=== PATIENT | male | born 1985 | race Caucasian/White ===

== ENCOUNTER 2023-08-16 16:47 | Emergency (ER) | payer MEDICAID, SELFPAY ==
[2023-08-16 17:00] VITALS: BP 111/69; BP 134/86; PULSE 86; PULSE 91; RESP 16; TEMP 36.6; O2SAT 100; O2SAT 99; BMI 20.1
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
[2023-08-16 17:45] LABS: Appearance Urine Turbid; Color Urine Yellow; Glucose Urine UA Negative (Negative); Leukocyte Esterase Urine Large (3+) (Negative); Nitrite Urine Positive (Negative); PH 7.5 (5.0-9.0); UMIC TRIGGER UACC YES; Urine Blood Large (3+) (Negative); Urine Ketones Negative (Negative); Urine Protein 30 (1+) mg/dL (Neg-Trace)
[2023-08-16 17:51] VITALS: BP 113/80; PULSE 96; RESP 16; TEMP 36.6; O2SAT 100
[2023-08-16] MEDS: oxyCODONE HCl Immed Release 5 MG TABLET PO (17:53)
[2023-08-16 18:32] LABS: Squamous Epithelial Cell Urine 0-2 /HPF (0-2); UACC Culture Trigger YES; WBC Urine 21-50 /HPF (0-5)
[2023-08-16 18:33] LABS: Bacteria Urine 3+ (None Seen); Hyaline Casts Urine 0-2 /LPF (0-2)
[2023-08-16] MEDS: cefuroxime axetiL 500 MG TABLET PO (19:16)
--- NOTE | 2023-08-16 19:23 | PC.NURSE ---
pt medicated per mar, ems at bedside, report given to ems by Susana MASCORRO.
== END 2023-08-16 19:23 ==
PROVIDERS: Emergency Provider Internal Medicine; PCP Hospitalist
DX: T83.090A Other mechanical complication of cystostomy catheter, initial encounter (principal); Y83.3 Surgical operation with formation of external stoma as the cause of abnormal reaction of the patient, or of later complication, without mention of misadventure at the time of the procedure; Y92.9 Unspecified place or not applicable; N39.0 Urinary tract infection, site not specified
CPT/HCPCS: 51705; 81001; 87086; 99283; 99285

== ENCOUNTER 2023-08-23 13:04 | Outpatient (AMB) | payer MEDICAID, SELFPAY ==
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
[2023-08-23 16:12] VITALS: BMI 19.9
== END 2023-08-23 14:44 | disposition home or self-care (01) ==
PROVIDERS: PCP Hospitalist; Visit Provider Physician Assistant
DX: S82.142A Displaced bicondylar fracture of left tibia, initial encounter for closed fracture (principal); M77.8 Other enthesopathies, not elsewhere classified
CPT/HCPCS: 99203

== ENCOUNTER 2023-08-23 13:24 | Outpatient (REF) | payer MEDICAID, SELFPAY ==
--- NOTE | ~2023-08-23 | XR_ITS ---
EXAMINATION: XR SHOULDER, LEFT CLINICAL INFORMATION: Pain. COMPARISON: Radiograph left shoulder 07/22/2023. TECHNIQUE: Three views of the left shoulder. FINDINGS: No fracture or subluxation. Joint spaces are maintained. No significant soft tissue abnormality. Partially imaged thoracic spinal hardware. XR/XR shoulder LT min 2V IMPRESSION: No significant radiographic abnormality of the left shoulder.
--- NOTE | ~2023-08-23 | XR_ITS ---
EXAMINATION: XR KNEE, LEFT CLINICAL INFORMATION: Pain in the left knee. COMPARISON: None available. TECHNIQUE: Two views of the left knee. FINDINGS: Comminuted tibial plateau fracture with intra-articular extension. Small size joint effusion. Prominent calcific/ossific bodies adjacent to the medial femoral condyle. Diffuse soft tissue swelling. XR/XR knee LT 2V IMPRESSION: 1. Comminuted tibial plateau fracture with intra-articular extension. 2. Prominent calcific/ossific bodies adjacent to the medial femoral condyle. The report will be called to the ordering clinician by a [place] [facility] Physician Tester Electronic Scale.
--- NOTE | ~2023-08-23 | XR_ITS ---
EXAMINATION: XR ANKLE, RIGHT CLINICAL INFORMATION: Pain. COMPARISON: None available. TECHNIQUE: AP, lateral, and mortise views of the right ankle. FINDINGS: Nonspecific heterogeneity of the bone marrow. No fractures or subluxation. Minimal soft tissue swelling. No abnormal soft tissue calcifications. No unexpected radiopaque foreign bodies. XR/XR ankle RT min 3V IMPRESSION: 1. No acute fractures or malalignment. 2. Nonspecific heterogeneity of the bone marrow, further evaluation with an MRI of the right ankle with and without IV contrast as clinically indicated.
== END 2023-08-23 13:25 | disposition home or self-care (01) ==
LOC: HO.XRAY 13:24
PROVIDERS: Visit Provider Physician Assistant
DX: M25.571 Pain in right ankle and joints of right foot (principal); M25.512 Pain in left shoulder; M25.562 Pain in left knee
CPT/HCPCS: 73030; 73560; 73610

== ENCOUNTER 2023-08-23 17:16 | Outpatient (REF) | payer MEDICAID, SELFPAY | END 2023-08-23 17:17 | disposition home or self-care (01) | LOC: HO.HOSX 17:16 | PROVIDERS: Visit Provider Physician Assistant | DX: S82.142A Displaced bicondylar fracture of left tibia, initial encounter for closed fracture (principal); M77.8 Other enthesopathies, not elsewhere classified | CPT/HCPCS: 99202 ==

== ENCOUNTER 2023-09-15 10:47 | Emergency (ER) | payer MEDICAID, SELFPAY ==
[2023-09-15 11:09] VITALS: BP 124/68; BP 130/75; PULSE 80; PULSE 85; RESP 16; TEMP 36.7; O2SAT 100; O2SAT 98; BMI 22.1
--- NOTE | 2023-09-15 12:04 | PC.NURSE ---
[facility] from [facility] d/t clogged suprapubic catheter. unable to irrigate at facility. no urine noted in catheter bag. bladder scan displays >645ml. pt states pain at penis. denies urinary sx/abd pain/n/v/d/fever/chills. abd nontender upon palpation. pt states he came in x 3 weeks ago for the same issue. pt waiting to be seen by ED provider. no sob/wob noted. respirations even and unlabored. plan of care ongoing. call salcedo placed within reach.
--- NOTE | 2023-09-15 13:00 | PC.NURSE ---
new 18Fr suprapubic catheter placed by Dr. Stanley. pt tolerated insertion well. pt verbalizing immediate abdominal discomfort post catheter insertion. pt still verbalizing 7/10 pain at his penis. requesting medication. provider aware. pt resting comfortably in no apparent distress. mother bedside for support. plan of care ongoing. call salcedo placed within reach.
--- NOTE | 2023-09-15 13:10 | ED.MALEGU ---
HPI - Male Genitourinary General Chief complaint: Urogenital-Male Stated complaint: CLOGGED SUPERPUBIC CATH, FROM SNF PER EMS Time Seen by Provider: 09/15/23 12:18 Source: patient Mode of arrival: EMS History of Present Illness HPI Narrative: 38-year-old male brought in [facility] for clogged suprapubic catheter, he denies any fever, chills, nausea or vomiting. Related Data Home Medications ?Medication ?Instructions ?Recorded ?Confirmed dextroamphetamine-amphetamine 5 mg 5 mg PO DAILY 08/23/23 08/24/23 tablet (Adderall) gabapentin 100 mg capsule 100 mg PO QDAY 08/23/23 08/24/23 sertraline 25 mg tablet 75 mg PO DAILY 08/23/23 08/24/23 Previous Rx's ?Medication ?Instructions ?Recorded cefuroxime axetil 250 mg tablet 250 mg PO BID 10 days #20 tabs 08/16/23 Allergies Allergy/AdvReac Type Severity Reaction Status Date / Time No Known Allergies Allergy Verified 09/15/23 11:12 Review of Systems Review of Systems: Pertinent positives and negatives as stated in HPI [facility] Past Medical History Source: nursing notes reviewed Medical History ADHD Depression Anxiety Surgical History H/O splenectomy Hx of spinal fusion History of bladder surgery History of surgery on lower extremity Social History Social History Patient Tobacco Use Status: Former Tobacco user Smoked in Last 30 Days: No Use of substances other than those prescribed or required for medical reasons: No Advance Directives: No Advance Directives Information Provided: No Current occupational status: unemployed and disabled Physical Exam Vital Signs: Vital Signs: Last Vital Signs Temp 98.0 F 09/15/23 11:09 Pulse 85 09/15/23 11:09 Resp 16 09/15/23 11:09 BP 130/75 09/15/23 11:09 Pulse Ox 100 09/15/23 11:09 O2 Del Method Room Air 09/15/23 11:09 BMI result Body Mass Index 22.1 VITAL SIGNS: Reviewed. GENERAL: Well developed, well nourished, in no acute distress. HEAD: Normocephalic/atraumatic EYES: PERRLA, EOMI LUNGS: Normal breath sounds. No adventitious sounds or accessory muscle use. SpO2<100> CARDIOVASCULAR: Regular rate and rhythm without noted murmurs ABDOMEN: Soft, non-tender, non-distended with bowel sounds. : Suprapubic catheter, without surrounding erythema/edema, significant amount of sediment noted within the tube itself without urine noted in the collection bag. MUSCULOSKELETAL: No tenderness, deformities, or effusions noted on gross inspection. EXTREMITIES: No cyanosis, clubbing or edema. SKIN: Inspection of the skin reveals no rashes NEUROLOGIC: Alert and oriented x 4. Strength and sensation to light touch were grossly intact x 4. Medical Decision Making Medical Decision Making MDM Narrative: 38-year-old male with history and clinical presentation consistent with blockage of superior pubic catheter with sediment, the catheter was upsized to 18 [place]an with a 10 mL balloon, no evidence to suggest underlying infection either clinically/historically or noting any foul odor on exchange. Bladder scan also noted that patient was in urinary retention secondary to the blockage of the suprapubic catheter. Patient received combination analgesics, the catheter is patent and he is otherwise discharged. Differential Diagnosis Differential Diagnoses: The differential diagnosis associated with the presentation includes Please see the discussion above Admission/Observation Consideration of admission/observation: Escalation of care including admission/observation considered Please see the discussion above Procedures Catheter Insertion (Urinary) Date of insertion: 09/15/23 Time of insertion: 13:14 Reason for placing: No Reason for placing indwelling catheter: Acute urinary retention Bladder scan/ultrasound used before catheterization: Yes Estimated amount of urine (mLs): 631 Antiseptic solution prep: Povidone-Iodine Topical anesthesia used: No Catheter type/location: Suprapubic Size (Belizean): 18 Catheter balloon size (mL): 10 Catheter balloon amount: 10 Results: successfully catheterized-immediate flow and retried with different size/type catheter Procedure performed: without complications Discharge Plan Discharge Clinical Impression: Complication, blocked suprapubic catheter, Acute urinary retention Patient Disposition: Xfer Other Instructions: How to Care for Your Suprapubic Catheter (DC) Additional Instructions: 1. Best maintenance of suprapubic catheter with a lot of sediment I recommend daily irrigation with scheduled catheter changes. 2. I also recommend follow-up with Urology. Please return to the ER for any worsening symptoms. Prescriptions: No Action cefuroxime axetil 250 mg tablet 250 mg PO BID 10 Days Qty: 20 0RF sertraline 25 mg tablet 75 mg PO DAILY gabapentin 100 mg capsule 100 mg PO QDAY dextroamphetamine-amphetamine [Adderall] 5 mg tablet 5 mg PO DAILY Print Language: Armenian
[2023-09-15] MEDS: Ibuprofen 400 MG TABLET PO (13:17)
[2023-09-15] MEDS: Acetaminophen 325 MG TABLET 975 MG PO (13:18)
--- NOTE | 2023-09-15 13:19 | PC.NURSE ---
pt rating pain at a 7/10 at this time. medication administered per provider order. effectiveness pending.
--- NOTE | 2023-09-15 15:10 | PC.NURSE ---
pt requesting scheduled medication that he usually takes [facility] at this time. dr. reed notified/aware. per dr. reed verbal order - medication from pt's med list was ordered at this time by this RN. will administer once verified by pharmacy.
[2023-09-15] MEDS: Gabapentin 100 MG CAPSULE PO (15:16)
[2023-09-15] MEDS: Lactulose 20 GM/30 ML SOLUTION 10 GM PO (15:16)
[2023-09-15] MEDS: Baclofen 10 MG TABLET PO (15:16)
--- NOTE | 2023-09-15 16:17 | PC.NURSE ---
pt continues to wait for transportation back to [facility] via EMS. resting comfortably in hallway in no apparent distress. mother bedside for support. respirations remain even and unlabored.
[2023-09-15 17:02] VITALS: BP 110/75; PULSE 86; RESP 14; TEMP 37.1; O2SAT 97
== END 2023-09-15 18:45 ==
PROVIDERS: Emergency Provider Student in an Organized Health Care Education/Training Program
DX: R33.9 Retention of urine, unspecified (principal); T83.098A Other mechanical complication of other urinary catheter, initial encounter; Y73.8 Miscellaneous gastroenterology and urology devices associated with adverse incidents, not elsewhere classified; Y92.9 Unspecified place or not applicable
CPT/HCPCS: 51702; 99284

== ENCOUNTER 2023-10-11 13:57 | Outpatient (AMB) | payer MEDICAID, SELFPAY ==
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
== END 2023-10-11 15:22 | disposition home or self-care (01) ==
PROVIDERS: Visit Provider Nurse Practitioner Family
DX: N31.9 Neuromuscular dysfunction of bladder, unspecified (principal)
CPT/HCPCS: 99204

== ENCOUNTER → 2023-10-11 13:57 | Outpatient (BNVA) | payer MEDICAID, SELFPAY | PROVIDERS: Visit Provider Nurse Practitioner Family | DX: N31.9 Neuromuscular dysfunction of bladder, unspecified (principal); Z96.0 Presence of urogenital implants; Z43.5 Encounter for attention to cystostomy | CPT/HCPCS: 99202 ==

== ENCOUNTER 2023-10-18 10:33 | Outpatient (AMB) | payer MEDICAID, SELFPAY ==
[2023-10-18 10:35] VITALS: BP 130/72; PULSE 105
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
== END 2023-10-18 11:14 | disposition home or self-care (01) ==
LOC: HO.HGI 10:33
PROVIDERS: PCP Hospitalist; Visit Provider Nurse Practitioner Family
DX: K59.04 Chronic idiopathic constipation (principal); R11.0 Nausea; G82.20 Paraplegia, unspecified
CPT/HCPCS: 99203

== ENCOUNTER → 2023-10-18 10:33 | Outpatient (BNVA) | payer MEDICAID, SELFPAY | PROVIDERS: PCP Hospitalist; Visit Provider Nurse Practitioner Family | DX: K59.04 Chronic idiopathic constipation (principal); R11.0 Nausea; G82.20 Paraplegia, unspecified | CPT/HCPCS: 99202 ==

== ENCOUNTER 2023-11-19 15:11 | Emergency (ER) | payer MEDICAID, SELFPAY ==
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
[2023-11-19 15:37] VITALS: BP 120/80; BP 129/79; PULSE 107; PULSE 92; RESP 18; TEMP 37; O2SAT 97; BMI 25.5
[2023-11-19 15:46] VITALS: BP 129/79; PULSE 92; RESP 18; TEMP 37; O2SAT 97
[2023-11-19 16:00] VITALS: BP 117/76; PULSE 90; RESP 18; TEMP 36.7; O2SAT 97
--- NOTE | 2023-11-19 16:23 | PC.NURSE ---
patient bladder scanned by this RN, patient noted to have over 400mL of urine in bladder. irrigation tray used and roughly 500cc of yellow urine drained manually from bladder. MD at bedside to replace suprapubic, 18FR suprapubic catheter placed delgado bag attached, UA sent. patient resting comfortably at this time
[2023-11-19 16:24] LABS: Appearance Urine Cloudy; Color Urine Yellow; Glucose Urine UA Negative (Negative); Leukocyte Esterase Urine Large (3+) (Negative); Nitrite Urine Positive (Negative); Specific Gravity - Urine 1.015 (1.005-1.025); UMIC TRIGGER UACC YES; Urine Blood Small (1+) (Negative); Urine Ketones Negative (Negative); Urine Protein 30 (1+) mg/dL (Neg-Trace)
[2023-11-19 16:28] LABS: Bacteria Urine 4+ (None Seen); Hyaline Casts Urine 0-2 /LPF (0-2); RBC Urine >20 /HPF (0-2); Squamous Epithelial Cell Urine 0-2 /HPF (0-2); UACC Culture Trigger YES; WBC Urine >50 /HPF (0-5)
[2023-11-19] MEDS: Acetaminophen 325 MG TABLET 650 MG PO (18:26)
== END 2023-11-19 18:32 | disposition skilled nursing facility (03) ==
PROVIDERS: Internal Medicine; Emergency Provider Emergency Medicine
DX: G82.20 Paraplegia, unspecified (principal); T83.9XXA Unspecified complication of genitourinary prosthetic device, implant and graft, initial encounter; Y73.8 Miscellaneous gastroenterology and urology devices associated with adverse incidents, not elsewhere classified; Y92.9 Unspecified place or not applicable; Z79.899 Other long term (current) drug therapy
CPT/HCPCS: 81001; 87086; 99284

== ENCOUNTER 2023-11-29 14:18 | Outpatient (AMB) | payer MEDICAID, SELFPAY ==
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
[2023-11-29 14:33] VITALS: BP 126/94; PULSE 102; O2SAT 97; BMI 23.5
== END 2023-11-29 15:21 | disposition home or self-care (01) ==
PROVIDERS: PCP Hospitalist; Visit Provider Nurse Practitioner Family
DX: K59.04 Chronic idiopathic constipation (principal); R11.0 Nausea; G82.20 Paraplegia, unspecified; K59.1 Functional diarrhea
CPT/HCPCS: 99213

== ENCOUNTER → 2023-11-29 14:18 | Outpatient (BNVA) | payer MEDICAID, SELFPAY | PROVIDERS: PCP Hospitalist; Visit Provider Nurse Practitioner Family | DX: K59.04 Chronic idiopathic constipation (principal); R11.0 Nausea; K59.1 Functional diarrhea; G82.20 Paraplegia, unspecified | CPT/HCPCS: 99212 ==

== ENCOUNTER 2023-12-23 15:11 | Outpatient (REF) | payer MEDICAID, SELFPAY ==
--- NOTE | ~2023-12-23 | XR_ITS ---
EXAMINATION: XR KNEE, LEFT CLINICAL INFORMATION: Pain. COMPARISON: Prior radiographs dated 08/23/2023. TECHNIQUE: AP and lateral views of the left knee. FINDINGS: A healing comminuted tibial plateau fracture is redemonstrated, with intra-articular extension. The fracture line is less apparent than was seen previously, with callus formation. There is diffuse soft tissue calcification adjacent to the medial femoral condyle, consistent with a Leisa-Stieda lesion. This suggests a prior MCL injury. Small loose bodies are questioned. XR/XR knee LT 2V IMPRESSION: 1. A healing fracture with intra-articular extension is again noted of the tibial plateau. Faint residual fracture lines are noted. 2. A Leisa-Stieda lesion is seen suggesting a prior MCL injury. 3. Small loose bodies are suspected within the joint space.
== END 2023-12-23 15:12 | disposition home or self-care (01) ==
LOC: HO.HOSX 15:11
PROVIDERS: PCP Hospitalist; Visit Provider Physician Assistant
DX: S82.142A Displaced bicondylar fracture of left tibia, initial encounter for closed fracture (principal); M77.8 Other enthesopathies, not elsewhere classified
CPT/HCPCS: 73560; 99212

== ENCOUNTER 2023-12-23 15:11 | Outpatient (AMB) | payer MEDICAID, SELFPAY ==
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
== END 2023-12-23 16:00 ==
PROVIDERS: PCP Hospitalist; Visit Provider Physician Assistant
DX: S82.142A Displaced bicondylar fracture of left tibia, initial encounter for closed fracture (principal); M77.8 Other enthesopathies, not elsewhere classified
CPT/HCPCS: 99213

== ENCOUNTER 2023-12-30 11:39 | Outpatient (REF) | payer MEDICAID, SELFPAY ==
--- NOTE | ~2023-12-30 | US_ITS ---
EXAMINATION: US RETROPERITONEAL COMPLETE (RENAL) CLINICAL INFORMATION: Neurogenic bladder. COMPARISON: None available. TECHNIQUE: Real-time imaging of the kidneys and bladder. FINDINGS: RIGHT KIDNEY: 10.8 x 4.9 x 4.4 cm (SAG x AP x TRV). The kidney is normal in size, contour, and echogenicity. Renal cortical thickness is normal. No calculi or focal parenchymal lesions. No hydronephrosis. LEFT KIDNEY: 11.9 x 5.3 x 4.8 cm (SAG x AP x TRV). The kidney is normal in size, contour, and echogenicity. Renal cortical thickness is normal. No calculi or focal parenchymal lesions. No hydronephrosis. BLADDER: Well distended and normal. Bilateral ureteral jets are demonstrated. Prevoid bladder volume is 381.9 mL. Postvoid bladder volume is 341.0 mL. Suprapubic tube seen within the bladder. ADDITIONAL FINDINGS: There are limited views of the prostate. US/US retroperitoneal comp IMPRESSION: 1. Normal appearance of the kidneys. 2. Large post void residual.
== END 2023-12-30 11:40 | disposition home or self-care (01) ==
LOC: HO.US 11:39
PROVIDERS: PCP Hospitalist; Visit Provider Nurse Practitioner Family
DX: N31.9 Neuromuscular dysfunction of bladder, unspecified (principal)
CPT/HCPCS: 76770

== ENCOUNTER 2024-01-11 10:28 | Outpatient (AMB) | payer MEDICAID, SELFPAY ==
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
== END 2024-01-11 11:23 | disposition home or self-care (01) ==
PROVIDERS: Visit Provider Nurse Practitioner Family
DX: N31.9 Neuromuscular dysfunction of bladder, unspecified (principal)
CPT/HCPCS: 51705; 99214; G2211

== ENCOUNTER → 2024-01-11 10:28 | Outpatient (BNVA) | payer MEDICAID, SELFPAY | PROVIDERS: Visit Provider Nurse Practitioner Family | DX: N31.9 Neuromuscular dysfunction of bladder, unspecified (principal) | CPT/HCPCS: 51705; 99212 ==

== ENCOUNTER 2024-01-14 12:46 | Emergency (ER) | payer MEDICAID, SELFPAY ==
[2024-01-14 13:04] VITALS: BP 134/90; BP 134/93; PULSE 109; PULSE 92; RESP 18; TEMP 36.5; O2SAT 96; O2SAT 98; BMI 26.6
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
[2024-01-14] MEDS: Baclofen 10 MG TABLET PO (13:55)
[2024-01-14 14:50] LABS: Anion Gap 11 (12-20); Blood Urea Nitrogen 14 mg/dL (9-16); Calcium 9.9 mg/dL (8.4-10.2); Carbon Dioxide 30 mmol/L (22-29); Chloride 105 mmol/L (96-108); Estimated Glomerular Filt Rate > 60; Glucose Random 85 mg/dL (60-115); Sodium 142 mmol/L (135-145)
[2024-01-14 15:20] VITALS: BP 121/89; PULSE 97; RESP 18; TEMP 36.9; O2SAT 97
[2024-01-14 15:32] LABS: Appearance Urine Cloudy; Color Urine Yellow; Glucose Urine UA Negative (Negative); Leukocyte Esterase Urine Large (3+) (Negative); Nitrite Urine Negative (Negative); Specific Gravity - Urine 1.015 (1.005-1.025); UMIC TRIGGER UACC YES; Urine Blood Trace (Negative); Urine Ketones Negative (Negative); Urine Protein Trace mg/dL (Neg-Trace)
[2024-01-14 15:35] LABS: Bacteria Urine 2+ (None Seen); Hyaline Casts Urine 0-2 /LPF (0-2); UACC Culture Trigger YES; WBC Urine >50 /HPF (0-5)
[2024-01-14 18:54] VITALS: BP 131/80; PULSE 109; RESP 16; TEMP 36.6
--- NOTE | 2024-01-14 19:32 | MHC.EDTECH ---
Patient given dinner tray
[2024-01-14 19:59] VITALS: BP 131/80; PULSE 109; RESP 16; TEMP 36.6; O2SAT 97
== END 2024-01-14 20:01 | disposition home or self-care (01) ==
PROVIDERS: Emergency Provider Student in an Organized Health Care Education/Training Program; PCP Hospitalist
DX: T83.098A Other mechanical complication of other urinary catheter, initial encounter (principal); Y73.8 Miscellaneous gastroenterology and urology devices associated with adverse incidents, not elsewhere classified; Y92.129 Unspecified place in nursing home as the place of occurrence of the external cause
CPT/HCPCS: 36415; 80048; 81001; 87086; 87088; 87186; 99283; 99284

== ENCOUNTER 2024-01-19 13:20 | Outpatient (AMB) | payer MEDICAID, SELFPAY ==
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
[2024-01-19 13:41] VITALS: BP 124/90; PULSE 110; O2SAT 97; BMI 25.1
== END 2024-01-19 14:11 | disposition home or self-care (01) ==
PROVIDERS: PCP Hospitalist; Visit Provider Nurse Practitioner Family
DX: K59.04 Chronic idiopathic constipation (principal); R11.0 Nausea; G82.20 Paraplegia, unspecified; K59.1 Functional diarrhea; K59.2 Neurogenic bowel, not elsewhere classified
CPT/HCPCS: 99213

== ENCOUNTER → 2024-01-19 13:20 | Outpatient (BNVA) | payer MEDICAID, SELFPAY | PROVIDERS: PCP Hospitalist; Visit Provider Nurse Practitioner Family | DX: K59.04 Chronic idiopathic constipation (principal); R10.9 Unspecified abdominal pain | CPT/HCPCS: 99212 ==